=== PATIENT | female | born 1940 | race Caucasian/White ===

== ENCOUNTER 2019-05-13 11:00 | Emergency (ER) | payer MEDICARE, MEDICAID ==
[2019-05-13] MEDS ORDERED: Adacel (T-DAP) 0.5 ML SYRINGE ONE (11:25)
--- NOTE | 2019-05-13 12:10 | CT ---
EXAM: CT scan cervical spineWithout contrast: HISTORY: Injury from trauma COMPARISON: None FINDINGS: No evidence for acute fracture or facet dislocation. No significant malalignment. No prevertebral soft tissue swelling. Diffuse multilevel disc osteophytosis evidence for spondylosis. Postoperative occipital craniectomy changes with resection of the posterior C1 ring, with fairly exte nsive CSF density extending through the craniectomy defect posteriorly and caudally. Abnormal opacification left mastoid with probable fluid. IMPRESSION: No evidence for acute fracture or facet dislocation or other significant acute process. Other findings as above.
--- NOTE | 2019-05-13 12:24 | CT ---
CT HEAD WITHOUT CONTRAST: Date: 05/13/19 Axial tomograms obtained without enhancement. INDICATION: Trauma. There are no comparison studies. FINDINGS: Craniotomy defect is seen involving the right occipital bone. Large operative defect seen involving t he cerebellum, primarily the right cerebellar hemisphere. CSF occupies this large operative defect, a nd CSF protrudes through the craniectomy defect pushing against the soft tissue flap posteriorly. The re are septations within this CSF cavity. The brainstem appears atrophic and deformed. Cerebral hemispheres are unremarkable. There is no evidence of acute mass, hemorrhage, or infarct. Left mastoid air cells show mucosal edema. Paranasal sinuses appear aerated. IMPRESSION: Large operative defect involving the posterior fossa as described above. No evidence of acute process . POS: OFF
[2019-05-13] MEDS ORDERED: Acetaminophen 500 MG TAB ONE (15:38)
== END 2019-05-13 16:10 | disposition home or self-care (01) ==
LOC: ERS 11:00
DX: S01.01XA Laceration without foreign body of scalp, initial encounter (principal); Z23 Encounter for immunization; W05.0XXA Fall from non-moving wheelchair, initial encounter
CPT/HCPCS: 12001; 70450; 72125; 90471; 90715

== ENCOUNTER 2019-07-20 10:59 | Outpatient (CLI) | payer MEDICARE, MEDICAID ==
[2019-07-20] MEDS ORDERED: Iopamidol 370 76% 100 ML VIAL ONE (13:34)
--- NOTE | 2019-07-20 13:40 | CT ---
CT BRAIN WITH AND WITHOUT IV CONTRAST: HISTORY: Altered mental status. COMPARISON: Noncontrasted exam of 05/13/2019. FINDINGS: Postop changes in the right cerebellar hemisphere with craniectomy changes in the right occipital bon e and CSF protruding through the craniectomy defect pushing against the soft tissue flap posteriorly age again seen. Septations within the CSF cavity are again noted. Deformity and atrophic change in the brainstem is stable. The ventricular size is stable. No evidence of acute infarct, hemorrhage, enhancing mass, or midline shift is identified. No acute osseous abnormalities are seen. The visualized paranasal sinuses are well aerated. There is fluid in the mastoid air cells. IMPRESSION: No Ct evidence of acute intracranial process or enhancing mass. POS: [facility]
== END 2019-07-20 11:00 | disposition home or self-care (01) ==
LOC: CT 10:59
PROVIDERS: ATTEND Family Medicine
DX: R41.82 Altered mental status, unspecified (principal)
CPT/HCPCS: 70470; 82565; Q9967

== ENCOUNTER 2025-06-11 02:55 | Inpatient (IN) | payer MEDICARE, MEDICAID ==
[2025-06-11 04:16] LABS: #Basophils Less than 0.03 10x3/uL (0.0-0.2); #Eosinophils Less than 0.03 10x3/uL (0.0-0.7); #Monocytes 0.70 10x3/uL (0.11-0.59); #Neutrophils 6.67 10x3/uL (1.40-6.50); %Basophils 0.1 % (0.0-1.0); %Eosinophils 0.1 % (0.0-10.0); %Lymphocytes 11.7 % (21.0-51.0); %Monocytes 8.3 % (0.0-10.0); %Neutrophils 79.4 % (42.0-75.0); Hematocrit 36.8 % (36.0-47.0); Hemoglobin 12.1 g/dL (12.0-16.0); Mean Corpuscular Hemoglobin 30.0 pg (27.0-31.0); Mean Corpuscular Volume 91.3 fL (78.0-98.0); Platelet Count 215 10x3/uL (130-400); Red Blood Cell (RBC) Count 4.03 mill/uL (4.20-5.40); White Blood Cell (WBC) Count 8.40 10x3/uL (4.8-10.8)
[2025-06-11 04:37] LABS: Bacteria/HPF 4+ HPF (None Seen); CAUTI Indications for Culture Alt mental st,lethar; Glucose, Urine (Dipstick) Normal (Negative); Leukocyte 75 Leu/uL (Negative); Protein, Urine (Dipstick) 20 mg/dL (Neg-Trace); RBC/HPF 0-3 HPF (0-3); Specific Gravity, Urine 1.024 (1.002-1.036); WBC/HPF 21-50 HPF (0-3)
[2025-06-11 04:38] LABS: Urine Culture Reflex Yes Yes
[2025-06-11 04:42] LABS: ALT (SGPT) Less than 7 U/L (Less than 34); AST (SGOT) 15 U/L (11-34); Albumin 3.7 g/dL (3.1-4.5); Alkaline Phosphatase 61 U/L (40-110); Anion Gap 18 mmol/L (10-20); BUN (Urea Nitrogen) 9 mg/dL (9.8-20.1); Bilirubin, Total 0.7 mg/dL (0.3-1.2); Calc. Creatinine Clearance 0 mL/min (70-130); Calcium 9.1 mg/dL (7.8-10.44); Carbon Dioxide 21 mmol/L (23-31); Chloride 107 mmol/L (98-107); Globulin 3.7 g/dL (2.4-3.5); Glucose 95 mg/dL (83-110); Potassium 3.8 mmol/L (3.5-5.1); Sodium 142 mmol/L (136-145)
[2025-06-11] MEDS ORDERED: cefTRIAXone (ROCEPHIN) 1 GM VIAL ONE (06:35)
[2025-06-11] MEDS ORDERED: Iopamidol-370 76% 500 ML MDV (1 ML CHARGE) ONE (08:37)
[2025-06-11] MEDS ORDERED: Acetaminophen 500 MG TAB PO PRN (10:04)
[2025-06-11] MEDS ORDERED: niCARdipine 25 MG in Sodium Chloride 0.9% 250 ML 250 ML IVPB PRN (10:04)
[2025-06-11] MEDS ORDERED: Ondansetron PF 4 MG/2 ML Vial IVP PRN (10:04)
[2025-06-11] MEDS ORDERED: Electrolyte Replacement Protocol 1 EACH IVPB PRN (10:04)
[2025-06-11 11:07] VITALS: BMI 18.1
[2025-06-11] MEDS ORDERED: hydrALAZINE 20 MG/ML VIAL SLOW IVP PRN (18:12)
[2025-06-11] MEDS: Famotidine/PF 20 mg/2ml Vial SLOW IVP SCH (20:40)
[2025-06-12 03:55] LABS: #Basophils Less than 0.03 10x3/uL (0.0-0.2); #Eosinophils 0.03 10x3/uL (0.0-0.7); #Monocytes 0.55 10x3/uL (0.11-0.59); #Neutrophils 4.57 10x3/uL (1.40-6.50); %Basophils 0.3 % (0.0-1.0); %Eosinophils 0.5 % (0.0-10.0); %Lymphocytes 14.4 % (21.0-51.0); %Monocytes 9.1 % (0.0-10.0); %Neutrophils 75.4 % (42.0-75.0); Hematocrit 36.1 % (36.0-47.0); Hemoglobin 11.2 g/dL (12.0-16.0); Mean Corpuscular Hemoglobin 29.2 pg (27.0-31.0); Mean Corpuscular Volume 94.0 fL (78.0-98.0); Platelet Count 194 10x3/uL (130-400); Red Blood Cell (RBC) Count 3.84 mill/uL (4.20-5.40); White Blood Cell (WBC) Count 6.06 10x3/uL (4.8-10.8)
[2025-06-12 04:16] LABS: ALT (SGPT) 7 U/L (Less than 34); AST (SGOT) 16 U/L (11-34); Albumin 3.5 g/dL (3.1-4.5); Alkaline Phosphatase 55 U/L (40-110); Anion Gap 16 mmol/L (10-20); BUN (Urea Nitrogen) 10 mg/dL (9.8-20.1); Bilirubin, Total 0.5 mg/dL (0.3-1.2); Calc. Creatinine Clearance 41 mL/min (70-130); Calcium 8.7 mg/dL (7.8-10.44); Carbon Dioxide 22 mmol/L (23-31); Chloride 108 mmol/L (98-107); Globulin 3.5 g/dL (2.4-3.5); Glucose 77 mg/dL (83-110); Potassium 3.8 mmol/L (3.5-5.1); Sodium 142 mmol/L (136-145)
[2025-06-12] MEDS: cefTRIAXone\\ROCEPHIN 1 GM in Sodium Chloride 0.9% 100 ML IVPB SCH (10:27)
[2025-06-12] MEDS: FLU (Fluad Triv) 25-26 (65UP)PF 45 MCG/0.5 ML Syringe IM ONE (23:24)
[2025-06-13 04:09] LABS: #Basophils Less than 0.03 10x3/uL (0.0-0.2); #Eosinophils Less than 0.03 10x3/uL (0.0-0.7); #Monocytes 0.46 10x3/uL (0.11-0.59); #Neutrophils 5.72 10x3/uL (1.40-6.50); %Basophils 0.1 % (0.0-1.0); %Eosinophils 0.3 % (0.0-10.0); %Lymphocytes 9.6 % (21.0-51.0); %Monocytes 6.6 % (0.0-10.0); %Neutrophils 82.1 % (42.0-75.0); Hematocrit 37.4 % (36.0-47.0); Hemoglobin 11.7 g/dL (12.0-16.0); Mean Corpuscular Hemoglobin 29.5 pg (27.0-31.0); Mean Corpuscular Volume 94.4 fL (78.0-98.0); Platelet Count 201 10x3/uL (130-400); Red Blood Cell (RBC) Count 3.96 mill/uL (4.20-5.40); White Blood Cell (WBC) Count 6.97 10x3/uL (4.8-10.8)
[2025-06-13 04:24] LABS: Anion Gap 21 mmol/L (10-20); BUN (Urea Nitrogen) 12 mg/dL (9.8-20.1); Calc. Creatinine Clearance 40 mL/min (70-130); Calcium 9.0 mg/dL (7.8-10.44); Carbon Dioxide 15 mmol/L (23-31); Chloride 107 mmol/L (98-107); Glucose 76 mg/dL (83-110); Potassium 4.0 mmol/L (3.5-5.1); Sodium 139 mmol/L (136-145)
[2025-06-13] MEDS: Famotidine/PF 20 mg/2ml Vial SLOW IVP SCH (07:41)
[2025-06-13 16:56] VITALS: BMI 17.7
[2025-06-14 11:45] VITALS: BP 143/69; TEMP 98
== END 2025-06-14 11:49 | disposition hospice, inpatient (51) | DRG 64 ==
LOC: ERS 02:55 → ERHOLD 07:00 → IMCU/EMU 11:07 → 2SE 06-13 21:07
PROVIDERS: ADMIT Internal Medicine; ATTEND Student in an Organized Health Care Education/Training Program
DX: I61.9 Nontraumatic intracerebral hemorrhage, unspecified (principal); G93.41 Metabolic encephalopathy; I69.954 Hemiplegia and hemiparesis following unspecified cerebrovascular disease affecting left non-dominant side; N39.0 Urinary tract infection, site not specified; E87.20 Acidosis, unspecified; F03.C0 Unspecified dementia, severe, without behavioral disturbance, psychotic disturbance, mood disturbance, and anxiety; I62.01 Nontraumatic acute subdural hemorrhage; R26.0 Ataxic gait; Z91.81 History of falling; Z85.841 Personal history of malignant neoplasm of brain; Z98.890 Other specified postprocedural states; Z51.5 Encounter for palliative care
CPT/HCPCS: 36415; 36416; 51701; 70450; 70496; 70498; 71260; 74177; 80048; 80053; 81001; 83605; 84484; 85025; 85379; 87040; 87077; 87086; 87186; 93005; 96365; J0696; Q9967